=== PATIENT | female | born 1990 | race Caucasian/White ===

== ENCOUNTER 2025-01-27 14:15 | Outpatient (CLI) | payer BC ==
--- NOTE | 2025-01-27 15:16 | RADIOLOGY REPORT ---
CLINICAL INDICATION: DEVIATED NASAL SEPTUM TECHNIQUE: DI NASAL BONES, 3VW MIN Comparison: None FINDINGS/IMPRESSION: : There is no evidence of acute fracture or dislocation. Soft tissues are unremarkable.
== END 2025-01-27 23:59 | disposition home or self-care (01) ==
LOC: RAD 14:15
PROVIDERS: ATTEND Family Medicine
DX: J34.2 Deviated nasal septum (principal)
CPT/HCPCS: 70160